=== PATIENT | male | born 1970 | race Two or more races ===

== ENCOUNTER 2020-10-24 16:14 | Emergency (ER) | payer BC ==
[~2020-10-24] VITALS: Ht 177.8 cm; Wt 87.0 kg
[2020-10-24] MEDS ORDERED: PLEASE ENTER HEIGHT AND WEIGHT MC SCH (17:00)
[2020-10-24] MEDS ORDERED: DEXAMETHASONE 4 MG/ML, 1ML PO ONE (17:00)
[2020-10-24] MEDS ORDERED: SODIUM CHLORIDE 0.9% 1,000ML IVBOLUS ONE ×2 (17:00→18:00)
[2020-10-24 17:38] LABS: BASOPHILS % (AUTO) 0 % (0-1); EOSINOPHILS % (AUTO) 0 % (1-7); LYMPHOCYTES % (AUTO) 9 % (22-44); MEAN CORPUSCULAR HEMOGLOBIN 31.3 pg (27.5-34.5); MEAN CORPUSCULAR HGB CONC 34.5 g/dL (33.2-36.2); MEAN PLATELET VOLUME 9.2 fL (7.4-10.4); MONOCYTES % (AUTO) 7 % (2-9); NEUTROPHILS % (AUTO) 84 % (42-75); PLATELET COUNT 177 x10^3/uL (130-400); RED BLOOD COUNT 4.73 x10^6/uL (4.38-5.82)
--- NOTE | 2020-10-24 17:41 | NUR ---
PT W/ 1 WEEK HX OF COUGH, CONGESTION, SOB, NAUSEA AND DIARRHEA. +COVID PER [facility] LAST WEEK. NOW WITH +SYNCOPAL EPISODES ON 10/23 AND 10/23. PT TO ROOM VIA WHEELCHAIR AND TRANSFERED TO
[2020-10-24 17:44] LABS: ALANINE AMINOTRANSFERASE 18 U/L (12-78); ANION GAP 10 mmol/L (5-15); CALCIUM 8.8 mg/dL (8.5-10.1); CHLORIDE 93 mmol/L (98-107); CREATININE 1.55 mg/dL (0.7-1.3)
[2020-10-24 17:46] LABS: ALKALINE PHOSPHATASE 72 U/L (45-117); BILIRUBIN,TOTAL 0.6 mg/dL (0.2-1.0)
[2020-10-24] MEDS ORDERED: PLEASE ENTER ALLERGIES MC SCH (18:00)
--- NOTE | 2020-10-24 18:01 | NUR ---
REPORT TO BLAKE SAGASTUME
--- NOTE | 2020-10-24 18:02 | NUR ---
REPORT FROM HUGO SAGASTUME
[2020-10-24] MEDS ORDERED: ONDANSETRON ODT 4 MG ONE (18:14)
[2020-10-24] MEDS ORDERED: IBUPROFEN 600 MG TABLET ONE (18:14)
[2020-10-24] MEDS ORDERED: DEXAMETHASONE 4 MG/ML, 1ML ONE (18:14)
[2020-10-24] MEDS ORDERED: IBUPROFEN 600 MG TABLET PO ONE (18:30)
[2020-10-24] MEDS ORDERED: ONDANSETRON ODT 4 MG PO ONE (18:30)
[2020-10-24 19:38] VITALS: BP 145/79
--- NOTE | 2020-10-24 19:38 | NUR ---
po challenge and road test after 2L ivf unremarkable
== END 2020-10-24 20:28 | disposition home or self-care (01) ==
LOC: ED 18:25
DX: U07.1 COVID-19 (principal); J12.82 Pneumonia due to coronavirus disease 2019; I95.9 Hypotension, unspecified; R55 Syncope and collapse; R06.02 Shortness of breath
CPT/HCPCS: 36415; 71045; 80053; 85025; 93005; 96360; 99285; J1100; J7030; Q0162

== ENCOUNTER 2020-10-27 21:18 | Inpatient (IN) | payer BC ==
[~2020-10-27] VITALS: Ht 177.8 cm; Wt 88.7 kg
--- NOTE | 2020-10-27 22:19 | NUR ---
Task RN: patient presents to ER c/o increased SOB and dry cough for a couple days. Patient states he was dx with COVID on 10/18. He did not receive the COVID vaccine. Patient states the cough is new over the last few days. Frequent dry cough noted. Respirations even and unlabored. No other associated symptoms. RA sat 92-94%.
[2020-10-27 22:30] LABS: BASOPHILS % (AUTO) 0 % (0-1); EOSINOPHILS % (AUTO) 0 % (1-7); LYMPHOCYTES % (AUTO) 6 % (22-44); MEAN CORPUSCULAR HEMOGLOBIN 31.2 pg (27.5-34.5); MEAN CORPUSCULAR HGB CONC 34.6 g/dL (33.2-36.2); MEAN PLATELET VOLUME 7.9 fL (7.4-10.4); MONOCYTES % (AUTO) 9 % (2-9); NEUTROPHILS % (AUTO) 85 % (42-75); PLATELET COUNT 183 x10^3/uL (130-400); RED BLOOD COUNT 4.18 x10^6/uL (4.38-5.82); RED CELL DISTRIBUTION WIDTH 13.1 % (9.4-14.8)
[2020-10-27 22:42] LABS: ALANINE AMINOTRANSFERASE 17 U/L (12-78); ALBUMIN 2.6 g/dL (3.4-5.0); ANION GAP 8 mmol/L (5-15); CALCIUM 8.8 mg/dL (8.5-10.1); CHLORIDE 97 mmol/L (98-107); CREATININE 0.99 mg/dL (0.7-1.3)
[2020-10-27 22:46] LABS: ALKALINE PHOSPHATASE 67 U/L (45-117); BILIRUBIN,TOTAL 0.7 mg/dL (0.2-1.0); TOTAL PROTEIN 7.6 g/dL (6.4-8.2); TROPONIN I < 0.015 ng/mL (0.000-0.045)
--- NOTE | 2020-10-27 22:58 | NUR ---
REPORT RECEIVED FROM BLAKE SAGASTUME, PT CARE TRANSFERRED AT THIS TIME. PT RESTING ON KENNY REYNOSO, NO CHANGE IN CONDITION, WCTM.
[2020-10-27] MEDS ORDERED: DEXAMETHASONE 4 MG TABLET PO ONE (23:00)
--- NOTE | 2020-10-27 23:03 | NUR ---
report to ankit agarwal erp to bedside- plan admin steroids/regeneron
[2020-10-27] MEDS ORDERED: CASIRIVIMAB 600 MG, IMDEVIMAB (REGN10987) 600 MG in SODIUM CHLORIDE 0.9% 250 ML IVPB ONE (23:30)
[2020-10-27] MEDS ORDERED: FILTER 0.22 MICRON IV ONE (23:30)
--- NOTE | 2020-10-27 23:49 | NUR ---
pt O2 dropping below 90s while resting, placed on 2L spo2 at this time and O2 sats increased. denies additional questions or needs at this time. Patient is resting comfortably in bed. Bed in lowest, rails engaged, call light on lap. TM.
[2020-10-27] MEDS ORDERED: DEXAMETHASONE 4 MG TABLET ONE (23:54)
[2020-10-28] MEDS ORDERED: [UNRECOGNIZED DRUG - CODE] PO (02:38)
[2020-10-28] MEDS ORDERED: BRONCHAID PO (02:38)
[2020-10-28] MEDS ORDERED: ALBUTEROL INH INH (02:38)
[2020-10-28] MEDS ORDERED: ZITHROMAX PO (02:38)
[2020-10-28] MEDS ORDERED: LEVO5TAB29 PO (02:39)
[2020-10-28] MEDS: DEXAMETHASONE 4 MG/ML, 1ML IVPush SCH ×2 (02:54→08:35)
[2020-10-28] MEDS ORDERED: POLYETHYLENE GLYCOL 17 GM PACKET PO PRN (03:00)
[2020-10-28] MEDS ORDERED: LABETALOL 5MG/ML, 20ML IVPush PRN (03:00)
[2020-10-28] MEDS ORDERED: MELATONIN 5 MG TABLET PO PRN (03:00)
[2020-10-28] MEDS ORDERED: ONDANSETRON 2MG/ML, 2ML IVPush PRN (03:00)
[2020-10-28] MEDS ORDERED: PHARMACY MAY ADJ FOR RENAL FX MC PRN (03:00)
[2020-10-28] MEDS ORDERED: ENOXAPARIN 40 MG/0.4 ML SQ SCH (03:00)
[2020-10-28 03:50] VITALS: BP 115/74
[2020-10-28] MEDS: ALBUTEROL HFA 90 MCG/SPRAY INH SCH ×3 (05:33→16:00)
[2020-10-28 07:58] VITALS: BP 148/94
[2020-10-28] MEDS ORDERED: ASCORBIC ACID 500 MG TABLET PO SCH (09:00)
[2020-10-28] MEDS ORDERED: FAMOTIDINE 20 MG TABLET PO SCH (09:00)
[2020-10-28] MEDS ORDERED: ZINC SULFATE 220 MG CAPSULE PO SCH (09:00)
[2020-10-28 13:12] VITALS: BP 145/88
[2020-10-28] MEDS ORDERED: ASCO500T9 PO (15:15)
[2020-10-28] MEDS ORDERED: ZINC220C8 PO (15:15)
[2020-10-29] MEDS ORDERED: DEXAMETHASONE 4 MG/ML, 1ML PO SCH (09:00)
== END 2020-10-28 16:50 | disposition home or self-care (01) | DRG 177 ==
LOC: ED 21:48 → EDIP 10-28 02:25 → 3N 10-28 03:41
PROVIDERS: ADMIT Internal Medicine; ATTEND Internal Medicine
DX: U07.1 COVID-19 (principal); J12.82 Pneumonia due to coronavirus disease 2019; J96.01 Acute respiratory failure with hypoxia; E87.1 Hypo-osmolality and hyponatremia; J45.901 Unspecified asthma with (acute) exacerbation; J90 Pleural effusion, not elsewhere classified; J93.9 Pneumothorax, unspecified; F19.10 Other psychoactive substance abuse, uncomplicated; Z79.899 Other long term (current) drug therapy
CPT/HCPCS: 36415; 71045; 80053; 84484; 85025; 93005; 99291; G0378; J1100; J1650; M0243